=== PATIENT | male | born 1965 | race Caucasian/White ===

== ENCOUNTER 2021-02-16 10:12 | Emergency (ER) | payer BC ==
[2021-02-16 10:45] LABS: ALT (SGPT) 69 U/L (8-55); AST (SGOT) 63 U/L (5-34); Albumin 3.4 g/dL (3.5-5.0); Alkaline Phosphatase 104 U/L (40-110); Anion Gap 23 mmol/L (10-20); BUN (Urea Nitrogen) 18 mg/dL (8.4-25.7); Bilirubin, Total 0.2 mg/dL (0.2-1.2); CK (CPK) 137 U/L (30-200); Calc. Creatinine Clearance 0 mL/min (70-130); Calcium 9.4 mg/dL (7.8-10.44); Carbon Dioxide 17 mmol/L (22-29); Chloride 103 mmol/L (98-107); Glucose 290 mg/dL (70-105); Potassium 4.1 mmol/L (3.5-5.1); Protein, Total 6.4 g/dL (6.0-8.3); Sodium 139 mmol/L (136-145)
[2021-02-16 10:46] LABS: #Basophils 0.2 thou/uL (0.0-0.2); #Eosinphils 0.2 thou/uL (0.0-0.7); #Monocytes 0.5 thou/uL (0.11-0.59); #Neutrophils 7.6 thou/uL (1.40-6.50); %Basophils 1.2 % (0.0-1.0); %Eosinophils 1.8 % (0.0-10.0); %Lymphocytes 32.2 % (21.0-51.0); %Monocytes 4.2 % (0.0-10.0); %Neutrophils 60.5 % (42.0-75.0); Hemoglobin 16.3 g/dL (14.0-18.0); Mean Corpuscular HGB CONC 31.1 g/dL (32.0-36.0); Mean Corpuscular Hemoglobin 29.4 pg (27.0-31.0); Mean Corpuscular Volume 94.4 fL (78.0-98.0); Mean Platelet Volume 7.2 fL (7.4-10.4); Platelet Count 260 thou/uL (130-400); RBC Distribution Width 12.7 % (11.5-14.5); Red Blood Cell (RBC) Count 5.54 mill/uL (4.70-6.10); White Blood Cell (WBC) Count 12.5 thou/uL (4.8-10.8)
[2021-02-16 10:51] LABS: Lactic Acid 8.7 mmol/L (0.5-2.2)
[2021-02-16 11:39] LABS: Bilirubin Negative (Negative); Blood, Urine Negative (Negative); Clarity Clear (Clear); Glucose, Urine (Dipstick) Negative (Negative); Ketone, Urine Negative (Negative); Leukocyte Negative (Negative); Nitrite Negative (Negative); Protein, Urine (Dipstick) Trace mg/dL (Neg-Trace); Specific Gravity, Urine 1.015 (1.005-1.030); Urobilinogen 0.2 mg/dL (Less than 2); pH, Urine 5.5 (5.0-9.0)
[2021-02-16 11:43] LABS: Base Excess-Venous -15.2 mmol/L (-2.0 to 3.0); Bicarbonate (HCO3v) 20.5 mmol/L (22.0-28.0); vO2 Saturation-calc 73.9 % (60.0-85.0)
[2021-02-16 11:44] LABS: Calcium, Ionized 1.22 mmol/L (1.15-1.33); Chloride 104 mmol/L (98-107); Hemoglobin - Calc 18.1 g/dL (14.0-18.0); Potassium 3.8 mmol/L (3.5-5.1); Sodium 143 mmol/L (138-145); T. Carbon Dioxide 23.6 mmol/L (22.0-28.0)
[2021-02-16 11:48] LABS: CO2 Tension (PvCO2) 99.8 mmHg (42.0-51.0)
[2021-02-16 12:11] LABS: Bacteria/HPF None Seen HPF (None Seen); RBC/HPF None Seen HPF (0-3); SARS-CoV-2 NAA Rapid Test Not Detected (NotDetected); Squamous Epithelial 0-3 HPF (0-3); WBC/HPF None Seen HPF (0-3)
[2021-02-16] MEDS ORDERED: Calcium Chloride 1 GM/10 ML Abboject SYRINGE ONE (14:23)
[2021-02-16] MEDS ORDERED: Rocuronium Bromide 10 MG/ML (10ML VIAL) ONE (14:23)
[2021-02-16] MEDS ORDERED: Atropine Sulfate 1 mg/10 ml Syringe ONE (14:23)
[2021-02-16] MEDS ORDERED: EPINEPHrine 1 MG/10 ML Abboject SYRINGE ONE (14:23)
[2021-02-16] MEDS ORDERED: Sodium Bicarb 50 MEQ/50 ML Abboject 8.4% SYRINGE ONE (14:23)
== END 2021-02-16 11:45 | disposition short-term general hospital (02) ==
LOC: BURERS 10:12
DX: I46.9 Cardiac arrest, cause unspecified (principal); I10 Essential (primary) hypertension; E78.5 Hyperlipidemia, unspecified; I48.91 Unspecified atrial fibrillation; E11.9 Type 2 diabetes mellitus without complications; Z79.01 Long term (current) use of anticoagulants; Z79.84 Long term (current) use of oral hypoglycemic drugs; Z79.899 Other long term (current) drug therapy; Z20.822 Contact with and (suspected) exposure to COVID-19
CPT/HCPCS: 36415; 51702; 71045; 80053; 81001; 82330; 82550; 82803; 83605; 83880; 84484; 85025; 92950; 93005; 94760; 96374; 96375; J0171; J0461; U0002